=== PATIENT | male | born 1985 | race Caucasian/White ===

== ENCOUNTER 2017-10-05 22:17 | Emergency (ER) | payer OTHER ==
[~2017-10-05] VITALS: Ht 167.6 cm; Wt 95.3 kg
[2017-10-05 22:33] VITALS: BP 174/111
[2017-10-05] MEDS ORDERED: LISINOPRIL5 MG PO (22:36)
[2017-10-05] MEDS ORDERED: TRAMADOL 50 MG50 MG PO (22:42)
[2017-10-05] MEDS ORDERED: CLEOCIN HCL150 MG PO (22:42)
[2017-10-05] MEDS ORDERED: IBUPROFEN 600600 M1 PO (22:42)
== END 2017-10-05 23:21 | disposition home or self-care (01) ==
LOC: M.ERS 22:17
DX: H92.02 Otalgia, left ear (principal); K02.9 Dental caries, unspecified; R22.0 Localized swelling, mass and lump, head; Z88.1 Allergy status to other antibiotic agents; Z88.0 Allergy status to penicillin; Z88.2 Allergy status to sulfonamides; Z88.8 Allergy status to other drugs, medicaments and biological substances

== ENCOUNTER 2019-05-20 11:08 | Emergency (ER) | payer OTHER ==
[~2019-05-20] VITALS: Ht 170.2 cm; Wt 121.6 kg
[~2019-05-20 11:08] MED LIST: CLEOCIN HCL150 MG PO; IBUPROFEN 600600 M1 PO; LISINOPRIL5 MG PO; TRAMADOL 50 MG50 MG PO
[2019-05-20] MEDS ORDERED: CIPRO500 MG PO (11:20)
[2019-05-20 13:15] VITALS: BP 137/81
== END 2019-05-20 13:16 | disposition home or self-care (01) ==
LOC: M.ERS 11:08
DX: I10 Essential (primary) hypertension (principal); Z88.1 Allergy status to other antibiotic agents; Z88.0 Allergy status to penicillin; Z88.2 Allergy status to sulfonamides; Z88.6 Allergy status to analgesic agent; Z88.8 Allergy status to other drugs, medicaments and biological substances